=== PATIENT | female | born 1985 | race African-American/Black ===

== ENCOUNTER 2018-06-27 22:04 | Emergency (ER) | payer OTHER ==
[2018-06-27] MEDS: KETOROLAC 30 MG INJ IM (23:31)
[2018-06-27 23:34] LABS: ADD UMIC YES; UR ASCORBIC ACID NEGATIVE (NEGATIVE); UR BILIRUBIN (Dip) NEGATIVE (NEGATIVE); UR BLOOD (Dip) NEGATIVE (NEGATIVE); UR CLARITY SLIGHTLY CLOUDY (CLEAR); UR COLOR YELLOW (YELLOW); UR GLUCOSE (Dip) NEGATIVE (NEGATIVE); UR KETONES (Dip) TRACE mg/dL (NEGATIVE); UR LEUKOCYTE ESTERASE (Dip) TRACE Leu/ul (NEGATIVE); UR MUCUS MODERATE /HPF (NONE SEEN); UR NITRITE (Dip) NEGATIVE (NEGATIVE); UR RBC 0 /HPF (0-5); UR SQUAMOUS EPITHELIAL CELL FEW /HPF (FEW); UR TOTAL PROTEIN (Dip) NEGATIVE (NEGATIVE); UR UROBILINOGEN (Dip) 1+ mg/dL (NEGATIVE); UR WBC 1 /HPF (0-5)
== END 2018-06-28 02:54 | disposition home or self-care (01) ==
LOC: FTE 06-28 02:54
DX: M25.552 Pain in left hip (principal)
CPT/HCPCS: 73510; 81001; 81025; 96372; 99284-25